=== PATIENT | female | born 1960 | race Caucasian/White ===

== ENCOUNTER 2019-03-05 03:08 | Observation (INO) | payer BC ==
[~2019-03-05] VITALS: Ht 160 cm; Wt 132.9 kg
[2019-03-05 03:42] LABS: BASOPHILS # (AUTO) 0.1 (0.0-0.1); BASOPHILS % 0.6 % (0.0-1.0); EOSINOPHILS # (AUTO) 0.2 (0.0-0.4); EOSINOPHILS % 1.7 % (0.0-6.0); HEMATOCRIT 40.3 % (34.2-44.1); HEMOGLOBIN 12.8 g/dL (12.0-16.0); LYMPHOCYTES # (AUTO) 3.2 (1.0-3.2); LYMPHOCYTES % 24.5 % (18.0-39.1); MEAN CORPUSCULAR HEMOGLOBIN 26.9 pg (28-32); MEAN CORPUSCULAR HGB CONC 31.8 g/dL (31-35); MEAN CORPUSCULAR VOLUME 84.7 fL (81-99); MONOCYTES # (AUTO) 0.9 (0.2-0.8); MONOCYTES % 7.2 % (4.4-11.3); NEUTROPHILS # (AUTO) 8.4 (2.1-6.9); NEUTROPHILS % 65.3 % (38.7-80.0); PLATELET COUNT 249 x10e3/uL (140-360); RED BLOOD COUNT 4.76 x10e6/uL (3.6-5.1); RED CELL DISTRIBUTION WIDTH 13.3 % (11.7-14.4)
--- NOTE | 2019-03-05 03:58 | Diagnostic Imaging Report ---
EXAMINATION: CHEST SINGLE (PORTABLE) COMPARISON: None INDICATION: Hypertension, chest pain ^CHEST PAIN ^[id number] ^0335 ^Y DISCUSSION: Frontal view of the chest obtained at 0337 hours. HEART AND MEDIASTINUM: The heart is enlarged. Pulmonary veins are mildly prominent. LINES: None. LUNGS: The lungs are well inflated and clear. No pneumonia or pulmonary edema. PLEURA: No pleural effusion or pneumothorax. BONES AND SOFT TISSUES: No focal osseous lesion. The soft tissues are normal. IMPRESSION: Cardiomegaly without vascular congestion. No acute pulmonary process. Signed by: Dr. Denis Pepper MD on 03/05/2019 3:55 AM
[2019-03-05 04:10] LABS: ALBUMIN 3.6 g/dL (3.5-5.0); ALBUMIN/GLOBULIN RATIO 1.3 (0.8-2.0); CALCIUM 9.8 mg/dL (8.4-10.2); CREATININE, SERUM 1.35 mg/dL (0.57-1.11)
[2019-03-05 04:19] LABS: CREATINE KINASE MB 0.7 ng/mL (0-5.0)
[2019-03-05] MEDS ORDERED: DEXTROSE 50% SYRINGE 50 ML IV PRN (04:30)
[2019-03-05] MEDS ORDERED: FAMOTIDINE 20 MG TAB PO SCH (04:30)
[2019-03-05] MEDS ORDERED: NITROGLYCERIN 0.4 MG SUBL SL PRN (04:30)
[2019-03-05] MEDS ORDERED: SODIUM CHLORIDE FLUSH 10 ML SYR INJ PRN (04:30)
[2019-03-05] MEDS ORDERED: MORPHINE SULFATE 2 MG/ML SYR 1ML IV PRN (04:30)
[2019-03-05] MEDS ORDERED: ONDANSETRON HCL INJ 2MG/ML 2ML 2 MG/ML VIAL IV PRN (04:30)
--- OUTSIDE RECORDS SUMMARY | 2019-03-05 04:31 | XMS REPORT ---
Author Author [facility] Address Unknown Phone Unavailable Care Team Providers Care Cane Flume Chute Operator Name Role Phone Dain WU Unavailable Unavailable Problems This patient has no known problems. Allergies, Adverse Reactions, Alerts This patient has no known allergies or adverse reactions. Medications This patient has no known medications. Results Test Description Test Time Test Comments Text Results Atomic Results Result Comments CHEST SINGLE (PORTABLE) 2019-03-05 03:54:00 [place] [address] Patient Name: STEFFI BRIGGS MR #: [id number] : 1960 Age/Sex: 58/F Req #: [id number] Adm Physician: Ordered by: DENI WU MD Report #: [id number] Location: ER Room/Bed: Procedure: [id number] DX/CHEST SINGLE (PORTABLE) Exam Date: 03/05/19 Exam Time: 334 REPORT STATUS: Signed EXAMINATION: CHEST SINGLE (PORTABLE) COMPARISON: None INDICATION: Hypertension, chest pain CHEST PAIN [id number] Y DISCUSSION: Frontal view of the chest obtained at 0337 hours. HEART AND MEDIASTINUM: The heart is enlarged. Pulmonary veins are mildly prominent. LINES: None. LUNGS: The lungs are well inflated and clear. No pneumonia or pulmonary edema. PLEURA: No pleural ef fusion or pneumothorax. BONES AND SOFT TISSUES: No focal osseous lesion. The soft tissues are normal. IMPRESSION: Cardiomegaly without vascular congestion. No acute pulmonary process. Signed by: Dr. Pilar Pepper MD on 03/05/2019 3:55 AM Dictated By: PILAR PEPPER MD 4 Transcribed By: GINA on 03/05/19354 COPY TO: DENI WU MD
[2019-03-05] MEDS ORDERED: HUMALOG (06:34)
[2019-03-05] MEDS ORDERED: LISINOPRIL40 MG PO (06:34)
[2019-03-05] MEDS ORDERED: LANTUS 3ML100 UNITS/ (06:34)
[2019-03-05] MEDS ORDERED: ATENOLOL-CHLOR1 EAC1 PO (06:34)
[2019-03-05] MEDS ORDERED: PANTOPRAZOLE 40 MG 10ML VIAL IV ONE (06:45)
[2019-03-05] MEDS ORDERED: OMEPRAZOLE40 MG PO (06:48)
[2019-03-05] MEDS ORDERED: TRULICITY SC (06:48)
[2019-03-05] MEDS: INSULIN REGULAR, HUMAN 100 UNIT/1 ML 3ML VIAL SQ SCH ×4 (07:08→21:06)
[2019-03-05 08:57] LABS: CHOL/HDL RATIO 4.9 (3.0-3.6)
[2019-03-05 09:14] LABS: THYROID STIMULATING HORMONE 3.667 uIU/mL (0.350-4.940)
[2019-03-05] MEDS: ASPIRIN 81 MG ENTERIC COATED PO SCH (09:31)
[2019-03-05] MEDS: FAMOTIDINE 20 MG TAB PO SCH ×2 (09:32→20:52)
[2019-03-05] MEDS: ATENOLOL 50 MG TAB PO SCH (09:32)
[2019-03-05 10:10] LABS: CREATINE KINASE MB 0.6 ng/mL (0-5.0)
[2019-03-05 12:28] VITALS: BP 191/118
[2019-03-05 13:33] VITALS: BP 191/118
[2019-03-05 13:59] VITALS: BP 191/118
[2019-03-05 15:39] VITALS: BP 144/99
--- NOTE | 2019-03-05 15:39 | History and Physical ---
PRIMARY CARE PHYSICIAN: Dr. Lia Couch with [facility]. CHIEF COMPLAINT: Chest pain. ALLERGIES: LEVOFLOXACIN, AMOXICILLIN, AMPICILLIN, AND MORPHINE. HISTORY OF PRESENT ILLNESS: This is a 58-year-old female with past medical history of diabetes type 2, hypertension, high cholesterol, GERD, and sleep apnea, presented with complaints of right-sided chest pain and radiating to the neck and jaw area. She reported right arm heaviness, but no weakness noted. She denies any fever, chills, nausea, vomiting, dysuria, hematuria, diaphoresis, or change in LOC. She reports using CPAP at night and last night she noted that she was having dry mouth and was unable to lay flat on her bed due to the pain. She denies any palpitations or shortness of breath. In the ER, blood pressure was 137/97, respirations 18, pulse 72, temperature 97.7, O2 sats are 100% on room air. She was given Protonix and Pepcid, which seemed to improve her pain. Labs; WBC with 12.84, platelets 249, hemoglobin 12.8, and hematocrit 40.3. Sodium 134. Creatinine 1.35. Estimated GFR 40. Glucose level 333, triglycerides 304, LDL 98, TSH 3.66. First set of troponins 0.062, which is normal. Chest x-ray shows cardiomegaly with vascular congestion. No acute pulmonary process. We will admit the patient under observation to rule out ACS. PAST MEDICAL HISTORY: 1. Diabetes. 2. Hypertension. 3. High cholesterol. 4. GERD. 5. Sleep apnea. 6. Morbid obesity. PAST SURGICAL HISTORY: She has hysterectomy, tonsillectomy, bilateral carpal tunnel. PAST SURGICAL HISTORY: Left knee cartilage cleaning, right foot surgery, and right arm surgery. FAMILY HISTORY: Mother has heart problems and stroke. Does not know about her biological father. SOCIAL HISTORY: She reports smoking 3/4 pack of cigarettes per day. She denies any alcohol use and smokes marijuana occasionally. REVIEW OF SYSTEMS: GENERAL: Lying in bed with no acute distress. HEENT: No head trauma or vision problems. LUNGS: No shortness of breath. CARDIOVASCULAR: Reports right-sided chest pain or palpitations. GI: No nausea, vomiting. NEUROLOGIC: Alert and oriented. MUSCULOSKELETAL: No problems in walking. Mild swelling in the lower extremities. SKIN: Dry and intact. PHYSICAL ASSESSMENT: VITAL SIGNS: See above. Pulse 67, blood pressure 142/95, respirations 14, and SpO2 is 100. GENERAL: Resting in bed, in no acute distress. HEENT: Jaw pain, resolved. NECK: Supple. No bruits. Able to move with no pain. LUNGS: Wheezing noted in the lower lobes. CARDIOVASCULAR: Normal heart rate and rhythm. HEENT: Normocephalic. PERRLA. ABDOMEN: Soft, nontender. Active bowel sounds. EXTREMITIES: Bilateral lower extremities noted 1+ edema, which is chronic. NEUROLOGICAL: Alert, awake, and oriented x3. No dizziness. LABORATORY DATA: Please see the HPI. IMAGING: Chest x-ray showed cardiomegaly with no pulmonary process. IMPRESSION: 1. Chest pain, rule out myocardial infarction. 2. Diabetes type 2. 3. Hypertension. 4. High cholesterol. 5. Gastroesophageal reflux disease. 6. Sleep apnea. 7. Chronic kidney disease 3. 8. Morbid obesity. PLAN: Today, cardiac enzymes x2 have been negative, pending one more set, we will also obtain echocardiogram to rule out congestive heart failure as she has been complaining of pain with lying flat. We will resume all her home medications. We will monitor her on cardiac telemetry to observe for any arrhythmias. If all workup is negative, we will plan on discharge in 24 to 48 hours. Dictated by TONJA Mark Pamela Castellanos MD MY/MODL /[id number]
[2019-03-05 20:15] LABS: CREATINE KINASE MB 0.6 ng/mL (0-5.0)
[2019-03-05 20:50] VITALS: BP 152/98
[2019-03-05 21:00] VITALS: BP 152/98
[2019-03-05] MEDS ORDERED: INSULIN GLARGINE 100 UNITS/ML VIAL SQ SCH ×2 (21:00)
[2019-03-06 00:29] VITALS: BP 129/78
[2019-03-06 05:16] LABS: BASOPHILS # (AUTO) 0.1 (0.0-0.1); BASOPHILS % 0.5 % (0.0-1.0); EOSINOPHILS # (AUTO) 0.3 (0.0-0.4); EOSINOPHILS % 2.5 % (0.0-6.0); HEMATOCRIT 39.1 % (34.2-44.1); HEMOGLOBIN 12.5 g/dL (12.0-16.0); LYMPHOCYTES # (AUTO) 3.2 (1.0-3.2); MEAN CORPUSCULAR HEMOGLOBIN 26.8 pg (28-32); MEAN CORPUSCULAR VOLUME 83.9 fL (81-99); MONOCYTES # (AUTO) 0.8 (0.2-0.8); MONOCYTES % 7.1 % (4.4-11.3); NEUTROPHILS # (AUTO) 6.6 (2.1-6.9); NEUTROPHILS % 60.3 % (38.7-80.0); PLATELET COUNT 246 x10e3/uL (140-360); RED BLOOD COUNT 4.66 x10e6/uL (3.6-5.1); RED CELL DISTRIBUTION WIDTH 13.7 % (11.7-14.4)
[2019-03-06 05:24] VITALS: BP 142/90
[2019-03-06 05:39] LABS: ALBUMIN 3.2 g/dL (3.5-5.0); ALBUMIN/GLOBULIN RATIO 1.2 (0.8-2.0); ANION GAP 12.5 mmol/L (8-16); CALCIUM 9.4 mg/dL (8.4-10.2); CHOL/HDL RATIO 5.4 (3.0-3.6); CREATININE, SERUM 1.09 mg/dL (0.57-1.11); POTASSIUM 3.5 mmol/L (3.5-5.1)
[2019-03-06 07:55] VITALS: BP 150/82
[2019-03-06 08:24] VITALS: BP 150/82
[2019-03-06] MEDS: ASPIRIN 81 MG ENTERIC COATED PO SCH (09:42)
[2019-03-06] MEDS: INSULIN REGULAR, HUMAN 100 UNIT/1 ML 3ML VIAL SQ SCH ×3 (09:44→16:30)
[2019-03-06] MEDS: ATENOLOL 50 MG TAB PO SCH (09:45)
[2019-03-06] MEDS: FAMOTIDINE 20 MG TAB PO SCH (09:45)
[2019-03-06] MEDS ORDERED: INSULIN GLARGINE 100 UNITS/ML VIAL SQ SCH (10:00)
[2019-03-06 11:36] VITALS: BP 163/87
[2019-03-06 16:07] VITALS: BP 154/92
--- NOTE | 2019-03-07 05:56 | Discharge Summary ---
PRIMARY CARE DOCTOR: Dr. Lia Couch with [facility]. CONSULTANTS: None. FINAL DIAGNOSES: 1. Chest pain, ruled out myocardial infarction. 2. Diabetes type 2. 3. Hypertension. 4. High cholesterol. 5. Gastroesophageal reflux disease. 6. Sleep apnea. 7. Morbid obesity. 8. Chronic kidney disease. PROCEDURES: Echocardiogram with preliminary report of 45% to 50% with trace MR. HISTORY: Per HPI. HOSPITAL COURSE: This is a 58-year-old female, who came in with chest pain and jaw pain radiating to her neck and heaviness to the right arm. Chest x-ray showed cardiomegaly without vascular congestion, with no acute pulmonary process. Cardiac enzymes were negative x3. Vital signs were stable. She was given Pepcid and Protonix in the ER, which resolved her symptoms. Chest pain may be related to GI problems. She has history of GERD. She was monitored overnight on telemetry with no rhythm changes or ST changes. Chest x-ray was unremarkable. She is now chest-pain free and has been chest-pain free since getting the PPI. Vital signs stable and afebrile. We will discharge home to follow up with her PCP and her professor of musicology in 1 to 2 weeks. PHYSICAL EXAMINATION: VITAL SIGNS: Temperature 97.0, pulse is 61, blood pressure 163/87, respirations 17, SpO2 is 97. GENERAL: No acute distress, sitting up in a chair. NECK: Supple. LUNGS: Clear to auscultation. CARDIOVASCULAR: S1 and S2. No murmurs. HEENT: Normocephalic and atraumatic. PERRLA. ABDOMEN: Soft, nontender, obese. EXTREMITIES: +1 edema noted in the lower extremities. No pain with range of motion. NEUROLOGIC: Alert, awake, and oriented x3. SKIN: Intact with no gross abnormalities. MEDICATIONS: See medication list. CONDITION AT DISCHARGE: Improved and stable. FOLLOWUP: Follow up with her primary care doctor and professor of musicology in 1 to 2 weeks. Total discharge time is 32 minutes. Dictated by TONJA Mark Hermelindaching Loyd Castellanos MD MY/MODL /[id number] cc: MD [facility]
== END 2019-03-06 18:23 | disposition home or self-care (01) ==
LOC: ER 03:08 → ERHOLD 04:26 → MED/SURG2 12:22
PROVIDERS: ADMIT Internal Medicine; ATTEND Internal Medicine
DX: R07.9 Chest pain, unspecified (principal); E11.9 Type 2 diabetes mellitus without complications; I10 Essential (primary) hypertension; E78.00 Pure hypercholesterolemia, unspecified; K21.9 Gastro-esophageal reflux disease without esophagitis; R06.81 Apnea, not elsewhere classified; E66.01 Morbid (severe) obesity due to excess calories; Z68.43 Body mass index [BMI] 50.0-59.9, adult; G47.30 Sleep apnea, unspecified; E11.22 Type 2 diabetes mellitus with diabetic chronic kidney disease; I12.9 Hypertensive chronic kidney disease with stage 1 through stage 4 chronic kidney disease, or unspecified chronic kidney disease; N18.9 Chronic kidney disease, unspecified
CPT/HCPCS: 36415 ×2; 71045; 80053 ×2; 80061 ×2; 82550; 82553; 82948 ×2; 84443; 84484; 85025 ×2; 93005; 93306; 99284; C9113; G0378 ×2; J1815; J1817

== ENCOUNTER 2019-03-07 15:45 | Observation (INO) | payer BC ==
[~2019-03-07] VITALS: Ht 160 cm; Wt 137.4 kg
[~2019-03-07 15:45] MED LIST: ATENOLOL-CHLOR1 EAC1 PO; HUMALOG; LANTUS 3ML100 UNITS/; LISINOPRIL40 MG PO; OMEPRAZOLE40 MG PO; TRULICITY SC
[2019-03-07 16:25] LABS: BASOPHILS # (AUTO) 0.1 (0.0-0.1); BASOPHILS % 0.4 % (0.0-1.0); EOSINOPHILS # (AUTO) 0.3 (0.0-0.4); EOSINOPHILS % 1.8 % (0.0-6.0); HEMATOCRIT 41.9 % (34.2-44.1); HEMOGLOBIN 13.9 g/dL (12.0-16.0); LYMPHOCYTES # (AUTO) 2.5 (1.0-3.2); LYMPHOCYTES % 17.6 % (18.0-39.1); MEAN CORPUSCULAR HEMOGLOBIN 27.1 pg (28-32); MEAN CORPUSCULAR HGB CONC 33.2 g/dL (31-35); MEAN CORPUSCULAR VOLUME 81.7 fL (81-99); MONOCYTES # (AUTO) 0.9 (0.2-0.8); MONOCYTES % 6.5 % (4.4-11.3); NEUTROPHILS # (AUTO) 10.1 (2.1-6.9); PLATELET COUNT 297 x10e3/uL (140-360); RED BLOOD COUNT 5.13 x10e6/uL (3.6-5.1); RED CELL DISTRIBUTION WIDTH 13.5 % (11.7-14.4)
[2019-03-07 16:46] LABS: ALBUMIN/GLOBULIN RATIO 1.3 (0.8-2.0); ANION GAP 16.7 mmol/L (8-16); CALCIUM 10.4 mg/dL (8.4-10.2); CREATININE, SERUM 1.26 mg/dL (0.57-1.11); POTASSIUM 3.7 mmol/L (3.5-5.1)
[2019-03-07 16:53] LABS: CREATINE KINASE MB 0.7 ng/mL (0-5.0)
--- NOTE | 2019-03-07 17:00 | Diagnostic Imaging Report ---
EXAMINATION: PA and lateral views of the chest. COMPARISON: None CLINICAL HISTORY: Shortness of breath, chest pain DISCUSSION: Lines/tubes: None. Lungs: The lungs are well inflated and clear. No pneumonia or pulmonary edema. Pleura: No pleural effusion or pneumothorax. Heart and mediastinum: The cardiomediastinal silhouette is normal. Bones and soft tissues: No acute bony abnormalities. IMPRESSION: No acute cardiopulmonary abnormalities. Signed by: Dr. Loyd De Anda M.D. on 03/07/2019 4:56 PM
[2019-03-07] MEDS ORDERED: HYDRALAZINE HCL 20 MG/ML VIAL IV ONE (17:30)
[2019-03-07] MEDS ORDERED: HYDRALAZINE HCL 20 MG/ML VIAL IV PRN (17:30)
[2019-03-07] MEDS ORDERED: ASPIRIN 325 MG TAB PO ONE (17:30)
[2019-03-07] MEDS ORDERED: MORPHINE SULFATE 2 MG/ML SYR 1ML IV PRN (17:30)
[2019-03-07] MEDS ORDERED: ONDANSETRON HCL INJ 2MG/ML 2ML 2 MG/ML VIAL IV PRN (17:30)
[2019-03-07] MEDS ORDERED: MORPHINE SULFATE INJ 4 MG/ML INJ 1ML IV PRN (17:45)
[2019-03-07] MEDS ORDERED: ACETAMINOPHEN 325 MG TAB PO PRN (18:15)
[2019-03-07] MEDS ORDERED: DEXTROSE 50% SYRINGE 50 ML IV PRN (18:15)
[2019-03-07 21:34] VITALS: BP 141/74
[2019-03-07] MEDS: INSULIN LISPRO 100 UNIT/1 ML 3ML VIAL SQ SCH (22:00)
[2019-03-07] MEDS: INSULIN GLARGINE 100 UNITS/ML VIAL SQ SCH (22:00)
--- NOTE | 2019-03-07 22:30 | NUR ---
RECEIVED PATIENT FROM ER AOX4, NO SIGNS OF RESPIRATORY DISTRESS NOTED. PATIENT VOICED DULL PAIN IN CHEST AT A LEVEL OF 1 AND ALSO COMPLAINED OF TIGHTNESS IN JAWS AND SORENESS IN RIGHT ARM. BED IS LOCKED IN LOWEST POSITION, BOTH SIDE RAILS ARE UP, CALL LIGHT WITHIN REACH, WILL CONTINUE TO MONITOR.
[2019-03-07 22:57] VITALS: BP 141/74
[2019-03-08] VITALS (8 sets, daily range): BP systolic 112–142; BP diastolic 72–97
--- NOTE | 2019-03-08 01:30 | NUR ---
PATIENT COMPLAINED OF FRUSTRATION DUE TO AIR CONDITIONING NOT WORKING IN ROOM. PATIENT CALLED FAMILY MEMBER FOR FAN TO PUT IN ROOM. WILL CONTINUE TO MONITOR SITUATION.
[2019-03-08 02:13] LABS: CREATINE KINASE MB 1.2 ng/mL (0-5.0)
--- NOTE | 2019-03-08 07:10 | NUR ---
PATIENT IN STABLE CONDITION WITH NO S/S OF RESPIRATORY DISTRESS. NO PAIN VOICED. DENIES CHEST PAIN AT THIS TIME. TELEMETRY APPLIED. CALL LIGHT IS WITHIN REACH, PATIENT INSTRUCTED TO CALL FOR ASSISTANCE INSTRUCTED.
[2019-03-08] MEDS: INSULIN LISPRO 100 UNIT/1 ML 3ML VIAL SQ SCH ×4 (07:30→20:30)
[2019-03-08] MEDS: ATENOLOL 50 MG TAB PO SCH (08:47)
[2019-03-08] MEDS: PANTOPRAZOLE SOD 40 MG TABEC PO SCH (08:47)
[2019-03-08] MEDS: INSULIN GLARGINE 100 UNITS/ML VIAL SQ SCH ×2 (08:50→20:30)
[2019-03-08 09:45] LABS: CREATINE KINASE MB 1.5 ng/mL (0-5.0)
[2019-03-08] MEDS ORDERED: CLOPIDOGREL BISULFATE 75 MG TAB PO ONE (10:15)
--- NOTE | 2019-03-08 12:44 | NUR ---
CALL AND SPOKE TO DR. CASH'S N.P. PAULO CHINCHILLA, REGARDING PATIENT'S FIVE EPISODES OF RIGHT SIDED CHEST PAIN AND JAW TIGHTENING. PATIENT STATED EPISODES "COULD BE ANXIETY OR NEURO RELATED". ORDER FOR ATIVAN 1MG Q6H PRN. INFORMED N.P. PATIENT IS ALLERGIC TO MORPHINE- ORDER TO DC MORPHINE.
--- NOTE | 2019-03-08 12:52 | Consultation ---
DATE OF CONSULTATION: Cardiac Consultation HISTORY OF PRESENT ILLNESS: A 58-year-old lady, who is diabetic, hypertensive, hypercholesterolemic, sleep apnea, and smoker. The patient was in this institution on 03/05 and she was dismissed on March 06, 2019. She went home to come back yesterday complaining of right arm pain with right arm heaviness and pain in her neck and jaw area. This happened when she go to sleep and she sleep flat. If she is sitting, she is fine. If she walks, she notice her usual shortness of breath and feeling air hunger. Furthermore, the patient's sleep on CPAP. The patient ruled out for myocardial infarction last visit and again this visit. Her chest x-ray showed some cardiomegaly with vascular congestion, but she is very vague and it was portable technique. Regardless, the patient is feeling well now and again, she is ruled out for myocardial infarction. Her cardiac symptoms are easy fatigability, shortness of breath on exertion. No pleuritic nor pericarditic component of chest pain. No recent travel. No hormone use. Of note, the patient had cardiac evaluation with Lexiscan nuclear stress test at [facility] and had been told she is perfectly normal just few months back. PAST MEDICAL HISTORY: 1. Morbid obesity. 2. Diabetes mellitus. 3. Hypertension. 4. Hypercholesterolemia. 5. Smoker. 6. Sleep apnea. 7. GERD. 8. Cervical and lumbar spine disease. 9. Hysterectomy. 10. Tonsillectomy. 11. Bilateral carpal tunnel surgery. 12. Laparoscopic left knee surgery. 13. Right foot surgery. 14. Right arm surgery. FAMILY HISTORY: Strongly positive on her mother side with her mother, her uncles. SOCIAL HISTORY: She is divorcee. She smokes three-quarter pack a day. She does not drink alcohol. Her son lives with her in her home. REVIEW OF SYSTEMS: GENERAL: No fever. No chills. HEENT: No vision problem. No hearing problem. PULMONARY: As per above. CARDIAC: As per above. GI: No hematemesis. No melena. No nausea. No vomiting. : No hematuria, increased frequency of urination. Urinary tract infection at time. MUSCULOSKELETAL: Back pain, cervical spine pain. SKIN: No rashes. No new skin lesion. ENDOCRINE: She is diabetic for 5 years on treatment, currently on insulin. She had problem with metformin in the past. HEMATOLOGY: No easy bruising or bleeding. HOME MEDICATIONS: Include: 1. Atenolol/hydrochlorothiazide. 2. Lisinopril 40 mg a day. 3. Lantus insulin. 4. Humalog insulin. 5. Trulicity. ALLERGIES: LEVAQUIN, AMOXICILLIN, AMPICILLIN, AND MORPHINE. PHYSICAL EXAMINATION: GENERAL: Morbidly obese lady, in no acute distress. VITAL SIGNS: Height of 5 feet 3 inches, weight of 303 pounds, blood pressure 110/70, heart rate of 50, and respiratory rate of 18. HEENT: Pupils are equal and reactive. NECK: No elevation of jugular venous pulsation. No bruit. CHEST: Clear to auscultation and percussion. HEART: Distant heart sound. Unable to palpate the apex. Normal first and second heart sounds. ABDOMEN: Very obese. I cannot appreciate any organomegaly or abdominal bruits. EXTREMITIES: No signs of clubbing. No edema. No signs of deep venous thrombosis. NEUROLOGIC: Awake, alert, and oriented. Able to move her extremities. LABORATORY DATA: Sodium of 134, potassium 3.7, BUN of 21, and creatinine of 1.26. White blood cell count of 13.9, hemoglobin 13.9, hematocrit 42%, and platelet count of 297,000. Cardiac enzymes are normal. Lipid profile last visit showed triglycerides of 257, total cholesterol of 189, HDL of 35, LDL of 103, and TSH of 3.67. IMPRESSION AND PLAN: 1. Diabetic with peripheral neuropathy. 2. Hypertension. 3. Hypercholesterolemia. 4. Sleep apnea. 5. Gastroesophageal reflux disease. 6. Chronic kidney disease. 7. Morbid obesity. 8. Repeated chest pain. Cardiac enzymes negative, but the patient already had noninvasive workup and she keeps coming for chest pain, now she came twice. In view of that, probably now within next available approach to rule out coronary artery disease is a cardiac catheterization. This was explained, risks, benefits, alternatives. Of note, the patient does have variation of decreased pulse in her right wrist, right radial. If it is will be femoral. We explained the cardiac catheterization. We explained the other approach of medical therapy, then we will need to add Plavix for the time being and statin small dose. The patient of course advised all the cardiac risk modification. The patient for the time being, she will take her Plavix, her statin because she needed to go home and she promises to follow on that with her linotype worker and her automotive brake specialist. MD GUY Lyles/BISHNU /[id number]
[2019-03-08] MEDS ORDERED: LORAZEPAM INJ 2 MG/ML VIAL IV PRN (13:00)
[2019-03-08] MEDS ORDERED: CYCLOBENZAPRINE HCL 10 MG TAB PO PRN (14:15)
[2019-03-08] MEDS ORDERED: SODIUM CHLORIDE 0.9% 1000ML 2,000 ML IV SCH (14:30)
--- NOTE | 2019-03-08 17:23 | History and Physical ---
PRIMARY CARE PHYSICIAN: Dr. Couch with [facility]. CHIEF COMPLAINT: Recurrent chest pain with right upper arm heaviness. HISTORY OF PRESENT ILLNESS: This is a 58-year-old female with past medical history of hypertension, high cholesterol, diabetes type 2, sleep apnea, morbid obesity, and GERD, presented with right-sided chest pain, right upper arm that started 4 days ago. She was admitted on 03/05/2019, and discharged on 03/06/2019, after a negative cardiac workup. At this time, she reports having similar pain with more right arm heaviness. She is able to move her arms. She denies any fever, chills, cough, diaphoresis, shortness of breath, change in LOC, or change in her bowel habits. She reports that she went to work yesterday and felt the chest pain, so had to go back to the house and called her PCP, who informed her that she had a cardiac workup at [facility] in recent months, which was negative and to follow up with Cardiology. She also told her to take Maalox and Pepto-Bismol, which she did, and did not relieve her pain, so she came to the ER. In the ER, chest x-ray was negative for acute process. She is admitted under observation for further evaluation. PAST MEDICAL HISTORY: 1. Hypertension. 2. High cholesterol. 3. Diabetes. 4. GERD. 5. Sleep apnea. 6. Morbid obesity. PAST SURGICAL HISTORY: 1. Tonsillectomy. 2. Bilateral tubal ligation. 3. Bilateral carpal tunnel surgeries. 4. Left knee surgery. 5. Right foot and right arm surgery. 6. Hysterectomy. FAMILY MEDICAL HISTORY: Reports mother had heart disease. SOCIAL HISTORY: She smokes 3/4 pack of cigarettes per day, she denies any alcohol use and reports using marijuana occasionally to help her sleep. She lives with her son and is a divorcee. REVIEW OF SYSTEMS: GENERAL: No fever or chills. HEENT: No head trauma or mouth sores. LUNGS: No shortness of breath or cough. CARDIOVASCULAR: Mild chest pain. Denies palpitations. GI: No nausea or vomiting. NEUROLOGIC: Alert and awake. MUSCULOSKELETAL: No swelling. No pain with ambulation. SKIN: No rash or itching. PHYSICAL ASSESSMENT: VITAL SIGNS: Temperature is 96.2, pulse is 65, blood pressure is 142/97, respirations 20, and SpO2 is 98%. GENERAL: Appears to be in no acute distress. HEENT: Normocephalic, atraumatic. LUNGS: Clear to auscultation. Bilateral lower lobes with decreased breath sounds. CARDIOVASCULAR: S1 and S2. No murmur. GI: Abdomen is soft and nontender. Obese. NEURO: Alert, awake, and oriented x3. MUSCULOSKELETAL: Complains of right arm heaviness and pain, and lower extremities with trace edema. SKIN: Intact and dry with no gross abnormalities. LABORATORY DATA: Sodium 134, potassium 3.7, creatinine 1.26, BUN is 21. WBCs 13.9, hemoglobin is 13.9, hematocrit 41.9, and platelets are 297. Cardiac enzymes x3 were negative. Chest x-ray shows cardiomegaly, but no acute process. IMPRESSION: 1. Chest pain, rule out acute coronary syndrome. 2. Hypertension. 3. Diabetes type 2. 4. High cholesterol. 5. Gastroesophageal reflux disease. 6. Sleep apnea and morbid obesity. 7. Smoker. PLAN: Chest pain is still present, Cardiology has been consulted, has discussed with her regarding left heart catheterization, but patient did not want to proceed with heart catheterization at this time. She was started on Plavix, we will give her Ativan for increased chest pain and anxiety. We will check a CTA of the chest to rule out PE. We will continue to monitor her on telemetry to see any arrhythmia. Advice on lifestyle modifications and cessation of smoking. Further recommendations to follow. Dictated by TONJA Mark Pamela Castellanos MD MY/MODL /[id number]
[2019-03-08 17:27] LABS: ANION GAP 15.8 mmol/L (8-16); CALCIUM 10.3 mg/dL (8.4-10.2); CREATININE, SERUM 1.16 mg/dL (0.57-1.11); POTASSIUM 3.8 mmol/L (3.5-5.1)
--- NOTE | 2019-03-08 18:06 | NUR ---
PATIENT OFF THE UNIT PER WHEELCHAIR TO RADIOLOGY- PATIENT IN STABLE CONDITION WITH NO S/S OF RESPIRATORY DISTRESS.
[2019-03-08] MEDS ORDERED: SODIUM CHLORIDE 0.9% 50ML 50 ML ONE (18:11)
[2019-03-08] MEDS ORDERED: IOPAMIDOL 370 MG/ML 200 ML INFUS..BTL INJ ONE (18:12)
--- NOTE | 2019-03-08 19:09 | NUR ---
PATIENT IS IN STABLE CONDITION WITH NO S/S OF RESPIRATORY DISTRESS. NO PAIN VOICED. TELEMETRY APPLIED. IV FLUIDS INFUSING. CALL LIGHT IS WITHIN REACH, PATIENT INSTRUCTED TO CALL FOR ASSISTANCE INSTRUCTED. REPORT GIVEN TO ONCOMING NURSE.
--- NOTE | 2019-03-08 20:30 | NUR ---
PATIENT IS AOX4, NO SIGNS OF DISTRESS NOTED. PATIENT VOICED THAT SHE HAS NOT FELT CHEST PAINS SINCE TAKING ATIVAN EARLIER. BED IN LOWEST POSITION AND LOCKED, CALL LIGHT WITHIN EASY REACH, WILL CONTINUE TO MONITOR.
--- NOTE | 2019-03-08 20:35 | Diagnostic Imaging Report ---
CT chest pulmonary embolism protocol CPT code: 48755 INDICATION: Chest pain radiates to jaw ^r/o PE ^[id number] ^1825 TECHNIQUE: Thin collimation axial images obtained through the level of the pulmonary arteries with additional imaging through the chest following the uneventful administration of 100 cc of low osmolar, nonionic intravenous contrast. Images reconstructed into coronal and sagittal MIPs for complete evaluation of the tortuous and overlapping pulmonary vascular structures and to reduce patient radiation dose. RADIATION DOSE: Total DLP: 100 mGy*cm Estimated effective dose: (DLP x 0.015 x size factor) mSv CTDIvol has been reviewed. It is below the limits set by the Radiation Protocol Committee (RPC). Dose reduction techniques used: Automated exposure control, adjustment of the mAs and/or kVp according to patient size, standardized low-dose protocol, and/or iterative reconstruction technique. COMPARISON: Chest x-ray 03/07/2019. FINDINGS: Pulmonary artery: No filling defects are appreciated within the main, left, right, lobar or visualized segmental pulmonary arteries to suggest embolism. The main pulmonary artery measures 3.3 cm in diameter. Aorta: The ascending aorta measures 3.7 cm in diameter. Lymph nodes: No enlarged axillary or supraclavicular lymph nodes. No enlarged mediastinal or hilar lymph nodes. Thyroid: Normal in size without mass in the visualized parenchyma.. Mediastinum: The heart is mildly enlarged. Pericardial effusion measures 8 mm. The esophagus is collapsed. Lungs: Right Lun noncalcified nodules in the right middle lobe, the larger measuring 4 mm (image 68). No infiltrates. Left Lung: Chronic atelectasis/scarring in the lingula. No infiltrates. Pleura: No pleural effusion or pleural based mass. Abdomen: No mass or lymphadenopathy in the visualized portions of the upper abdomen. Bones: Mild degenerative changes of the spine. No compression deformities or focal osseous lesions. IMPRESSION: 1. No evidence of pulmonary embolus. Top normal-size of the main pulmonary artery 2. Cardiomegaly and small pericardial effusion. 3. Subcentimeter nodules in the right middle lobe, statistically benign. Signed by: Dr. Denis Pepper MD on 03/08/2019 8:32 PM
[2019-03-08] MEDS ORDERED: ATORVASTATIN 10 MG TAB PO SCH (21:00)
[2019-03-09 00:14] VITALS: BP 139/89
[2019-03-09 05:30] VITALS: BP 120/86
[2019-03-09 06:38] LABS: ANION GAP 14.4 mmol/L (8-16); CALCIUM 9.3 mg/dL (8.4-10.2); CREATININE, SERUM 1.14 mg/dL (0.57-1.11); POTASSIUM 3.4 mmol/L (3.5-5.1)
--- NOTE | 2019-03-09 07:10 | NUR ---
PATIENT IS IN STABLE CONDITION WITH NO S/S OF RESPIRATORY DISTRESS. NO PAIN VOICED. IV FLUIDS INFUSING. CPAP APPLIED. CALL LIGHT IS WITHIN REACH, PATIENT INSTRUCTED TO CALL FOR ASSISTANCE INSTRUCTED.
[2019-03-09 07:54] VITALS: BP 108/73
[2019-03-09] MEDS: PANTOPRAZOLE SOD 40 MG TABEC PO SCH (08:40)
[2019-03-09] MEDS: ATENOLOL 50 MG TAB PO SCH (08:40)
[2019-03-09] MEDS: INSULIN LISPRO 100 UNIT/1 ML 3ML VIAL SQ SCH ×3 (08:40→16:30)
[2019-03-09] MEDS: INSULIN GLARGINE 100 UNITS/ML VIAL SQ SCH (08:48)
[2019-03-09 08:57] VITALS: BP 108/73
[2019-03-09] MEDS ORDERED: CLOPIDOGREL BISULFATE 75 MG TAB PO SCH (09:00)
[2019-03-09] MEDS ORDERED: LISINOPRIL 20 MG TAB PO SCH (09:00)
[2019-03-09] MEDS ORDERED: ASPIRIN 81 MG CHEW TAB PO SCH (09:00)
[2019-03-09 11:17] VITALS: BP 125/66
[2019-03-09 15:18] VITALS: BP 142/77
--- NOTE | 2019-03-09 18:52 | NUR ---
PATIENT DISCHARGE HOME- PATIENT OFF THE UNIT AT 1844 ACCOMPANIED BY STAFF MEMBER AND HER SON. PATIENT IN STABLE CONDITION WITH NO S/S OF RESPIRATORY DISTRESS. NO PAIN VOICED. IV REMOVED WITH TIP INTACT. DISCHARGE TEACHING, INSTRUCTIONS, AND MEDICATIONS GIVEN TO THE PATIENT. ALL PERSONAL ITEMS TAKEN WITH THE PATIENT.
--- NOTE | 2019-03-10 14:53 | Discharge Summary ---
CONSULTANTS: Santosh Moore M.D. with Cardiology. PCP: Dr. Couch with [facility]. FINAL DIAGNOSES: 1. Chest pain, ruled out acute coronary syndrome. 2. Hypertension. 3. High cholesterol. 4. Diabetes type 2. 5. Gastroesophageal reflux disease. 6. Sleep apnea. 7. Morbid obesity. PROCEDURES: None. HISTORY: Per HPI. HOSPITAL COURSE: This is a 58-year-old female with a history of hypertension, high cholesterol, diabetes, sleep apnea, morbid obesity, and GERD, presented with recurrent chest pain. She had a cardiac workup, which was unremarkable, cardiac enzymes x3 were negative. Chest x-ray is unremarkable. No EKG changes. She was admitted on 03/05/2019 and discharged on 03/06/2019 after workup was completed, but returned on 03/07/2019 with similar symptoms. Cardiology was consulted this time around. Cardiac enzymes were negative again. Cardiology recommended a left heart catheterization, but the patient has refused at this time to undergo catheterization for further workup. She was started on Plavix 1 loading dose given and started on 75 mg p.o. daily. CTA of chest was performed to rule out PE, which was negative for PE. We will discharge the patient on aspirin, Plavix, and her current medications and to follow up with her PCP and her poker machine attendant at [facility] as she prefers to follow up with them for further workup. PHYSICAL EXAMINATION: GENERAL: Alert with no acute distress. NECK: Supple. LUNGS: With mild decreased breath sounds. CARDIOVASCULAR: Normal rate and rhythm. ABDOMEN: Soft and nontender. EXTREMITIES: No swelling. NEUROLOGIC: Alert, awake, oriented x3. CONDITION AT DISCHARGE: Improved and stable. DISCHARGE MEDICATIONS: Please see medication reconciliation list. FOLLOWUP: Follow up with her PCP, Dr. Couch and her poker machine attendant at [facility]. Total time for discharge was 32 minutes. Dictated by TONJA Mark Pamela Castellanos MD MY/MODL /[id number] cc: Dr. Couch
== END 2019-03-09 18:50 | disposition home or self-care (01) ==
LOC: ER 15:45 → ERHOLD 17:24 → MED/SURG3 21:15
PROVIDERS: ADMIT Internal Medicine; ATTEND Internal Medicine
DX: R07.89 Other chest pain (principal); E78.00 Pure hypercholesterolemia, unspecified; G47.30 Sleep apnea, unspecified; E66.01 Morbid (severe) obesity due to excess calories; K21.9 Gastro-esophageal reflux disease without esophagitis; M79.621 Pain in right upper arm; Z82.49 Family history of ischemic heart disease and other diseases of the circulatory system; F17.210 Nicotine dependence, cigarettes, uncomplicated; E11.42 Type 2 diabetes mellitus with diabetic polyneuropathy; E11.22 Type 2 diabetes mellitus with diabetic chronic kidney disease; I12.9 Hypertensive chronic kidney disease with stage 1 through stage 4 chronic kidney disease, or unspecified chronic kidney disease; N18.9 Chronic kidney disease, unspecified; Z79.4 Long term (current) use of insulin; Z88.1 Allergy status to other antibiotic agents; Z88.5 Allergy status to narcotic agent; Z68.43 Body mass index [BMI] 50.0-59.9, adult
CPT/HCPCS: 36415 ×3; 71046; 71260; 80048 ×2; 80053; 82550 ×2; 82553 ×2; 82948 ×3; 83880; 84484 ×2; 85025; 93005; 99284; G0378 ×3; J1815; J2060; J7030; Q9967; S0164 ×2

== ENCOUNTER 2019-10-01 17:57 | Emergency (ER) | payer BC ==
[~2019-10-01] VITALS: Ht 160 cm; Wt 137.4 kg
== END 2019-10-01 18:57 | disposition home or self-care (01) ==
LOC: ER 17:57
DX: R10.33 Periumbilical pain (principal); K42.9 Umbilical hernia without obstruction or gangrene; I10 Essential (primary) hypertension; E11.9 Type 2 diabetes mellitus without complications; E78.5 Hyperlipidemia, unspecified; K21.9 Gastro-esophageal reflux disease without esophagitis
CPT/HCPCS: 99283

== ENCOUNTER 2021-01-11 10:58 | Inpatient (IN) | payer BC ==
[~2021-01-11] VITALS: Ht 160 cm; Wt 105.2 kg
[2021-01-11] MEDS ORDERED: SODIUM CHLORIDE 0.9% 1000ML 1,000 ML IV STA ×2 (11:44→12:45)
[2021-01-11 12:03] LABS: BASOPHILS # (AUTO) 0.1 (0.0-0.1); BASOPHILS % 0.8 % (0.0-1.0); EOSINOPHILS # (AUTO) 0.1 (0.0-0.4); EOSINOPHILS % 0.5 % (0.0-6.0); HEMATOCRIT 41.3 % (34.2-44.1); HEMOGLOBIN 13.4 g/dL (12.0-16.0); LYMPHOCYTES # (AUTO) 1.9 (1.0-3.2); LYMPHOCYTES % 12.3 % (18.0-39.1); MEAN CORPUSCULAR HEMOGLOBIN 26.5 pg (28-32); MEAN CORPUSCULAR HGB CONC 32.4 g/dL (31-35); MEAN CORPUSCULAR VOLUME 81.6 fL (81-99); MONOCYTES # (AUTO) 1.4 (0.2-0.8); MONOCYTES % 9.2 % (4.4-11.3); NEUTROPHILS # (AUTO) 11.4 (2.1-6.9); NEUTROPHILS % 73.3 % (38.7-80.0); PLATELET COUNT 377 x10e3/uL (140-360); RED BLOOD COUNT 5.06 x10e6/uL (3.6-5.1); RED CELL DISTRIBUTION WIDTH 13.6 % (11.7-14.4)
[2021-01-11] MEDS ORDERED: DIATRIZOATE MEGL/DIATRIZOA SOD 30 ML BTL PO ONE (12:04)
[2021-01-11 12:21] LABS: INFLUENZAE A&B ANTIGEN (RAPID) NEGATIVE (NEGATIVE); STREPTOCOCCUS GRP A ANTIGEN NEGATIVE (NEGATIVE)
[2021-01-11 12:22] LABS: ALANINE AMINOTRANSFERASE 19 IU/L (0-55); ALBUMIN 2.4 g/dL (3.5-5.0); ALBUMIN/GLOBULIN RATIO 0.5 (0.8-2.0); ALKALINE PHOSPHATASE 160 IU/L (40-150); ANION GAP 23.2 mmol/L (8-16); BLOOD UREA NITROGEN 34 mg/dL (7-26); BUN/CREATININE RATIO 23 (6-25); CALCIUM 10.6 mg/dL (8.4-10.2); CARBON DIOXIDE 17 mmol/L (22-29); CHLORIDE 93 mmol/L (98-107); CREATINE KINASE 10 IU/L (29-168); CREATININE, SERUM 1.45 mg/dL (0.57-1.11); EST GLOMERULAR FILTRATION RATE 37 ML/MIN (60-); POTASSIUM 4.2 mmol/L (3.5-5.1); SODIUM 129 mmol/L (136-145)
[2021-01-11 12:27] LABS: GLUCOSE 541 mg/dL (74-118)
[2021-01-11] MEDS ORDERED: SODIUM CHLORIDE 0.9% 50ML 50 ML ONE (13:05)
[2021-01-11] MEDS ORDERED: IOPAMIDOL 370 MG/ML 200 ML INFUS..BTL INJ ONE (13:05)
[2021-01-11] MEDS ORDERED: MAGNESIUM SULF 1GRAM/DEXTROSE 100 ML IV PRN (14:00)
[2021-01-11] MEDS ORDERED: POTASSIUM CHLORIDE 20MEQ/100ML 200 ML IV PRN (14:00)
[2021-01-11] MEDS: INSULIN REGULAR, HUMAN 3ML VL 100 UNIT in SODIUM CHLORIDE 0.9% 100 ML IV SCH ×2 (14:44)
[2021-01-11] MEDS: SODIUM CHLORIDE 0.9% 1000ML 1,000 ML IV SCH ×2 (15:20→19:25)
[2021-01-11 16:30] LABS: ANION GAP 15.6 mmol/L (8-16); CREATININE, SERUM 1.26 mg/dL (0.57-1.11); MAGNESIUM 1.8 MG/DL (1.3-2.1); POTASSIUM 3.6 mmol/L (3.5-5.1)
[2021-01-11 16:31] LABS: CALCIUM 8.9 mg/dL (8.4-10.2)
[2021-01-11 19:52] LABS: ANION GAP 15.6 mmol/L (8-16); CALCIUM 9.1 mg/dL (8.4-10.2); CREATININE, SERUM 1.05 mg/dL (0.57-1.11); MAGNESIUM 1.8 MG/DL (1.3-2.1); POTASSIUM 3.6 mmol/L (3.5-5.1)
[2021-01-11] MEDS: DEXTROSE 5%/0.45% SOD CHL 1,000 ML IV SCH (20:38)
[2021-01-11] MEDS ORDERED: INSULIN REGULAR IN 0.9 % NACL 100 ML IV ONE (22:46)
[2021-01-12] VITALS (9 sets, daily range): BP systolic 121–161; BP diastolic 79–100
[2021-01-12] MEDS: INSULIN REGULAR, HUMAN 3ML VL 100 UNIT in SODIUM CHLORIDE 0.9% 100 ML IV SCH ×2
[2021-01-12 00:26] LABS: ANION GAP 13.5 mmol/L (8-16); CALCIUM 8.6 mg/dL (8.4-10.2); CREATININE, SERUM 0.86 mg/dL (0.57-1.11); MAGNESIUM 1.7 MG/DL (1.3-2.1); POTASSIUM 3.5 mmol/L (3.5-5.1)
[2021-01-12] MEDS: DEXTROSE 5%/0.45% SOD CHL 1,000 ML IV SCH (03:00)
[2021-01-12 04:56] LABS: BASOPHILS # (AUTO) 0.1 (0.0-0.1); BASOPHILS % 0.4 % (0.0-1.0); EOSINOPHILS # (AUTO) 0.1 (0.0-0.4); EOSINOPHILS % 0.9 % (0.0-6.0); HEMATOCRIT 37.4 % (34.2-44.1); HEMOGLOBIN 11.6 g/dL (12.0-16.0); LYMPHOCYTES # (AUTO) 1.8 (1.0-3.2); LYMPHOCYTES % 15.8 % (18.0-39.1); MEAN CORPUSCULAR HEMOGLOBIN 26.6 pg (28-32); MEAN CORPUSCULAR VOLUME 85.8 fL (81-99); MONOCYTES # (AUTO) 0.8 (0.2-0.8); MONOCYTES % 7.5 % (4.4-11.3); NEUTROPHILS # (AUTO) 7.9 (2.1-6.9); NEUTROPHILS % 70.8 % (38.7-80.0); PLATELET COUNT 256 x10e3/uL (140-360); RED BLOOD COUNT 4.36 x10e6/uL (3.6-5.1); RED CELL DISTRIBUTION WIDTH 13.6 % (11.7-14.4)
[2021-01-12 05:11] LABS: ANION GAP 13.3 mmol/L (8-16); CALCIUM 9.5 mg/dL (8.4-10.2); CREATININE, SERUM 0.85 mg/dL (0.57-1.11); MAGNESIUM 1.8 MG/DL (1.3-2.1); POTASSIUM 3.3 mmol/L (3.5-5.1)
[2021-01-12] MEDS ORDERED: DEXTROSE 50% SYRINGE 50 ML IV PRN (05:30)
[2021-01-12] MEDS ORDERED: POTASSIUM CHLORIDE 20 MEQ TAB CR PO ONE ×2 (06:07→07:00)
[2021-01-12] MEDS: INSULIN REGULAR, HUMAN 100 UNIT/1 ML SQ SCH ×2 (07:30→11:26)
[2021-01-12 10:01] LABS: ANION GAP 15.9 mmol/L (8-16); CALCIUM 8.8 mg/dL (8.4-10.2); CREATININE, SERUM 0.95 mg/dL (0.57-1.11); MAGNESIUM 1.7 MG/DL (1.3-2.1); POTASSIUM 3.9 mmol/L (3.5-5.1)
[2021-01-12] MEDS: MEROPENEM 1 GM in SODIUM CHLORIDE 0.9% 100 ML IV SCH ×2 (11:30→21:59)
[2021-01-12 12:17] LABS: CLARITY,URINE CLEAR (CLEAR); COLOR,URINE YELLOW (YELLOW); LEUKOCYTE ESTERASE ,URINE SMALL (NEGATIVE)
[2021-01-12 12:18] LABS: NITRITE,URINE POSITIVE (NEGATIVE); PROTEIN,URINE DIPSTICK NEGATIVE (NEGATIVE)
[2021-01-12 12:19] LABS: KETONES,URINE 1+ (NEGATIVE); URINE UROBILINOGEN 0.2 mg/dL (0.2 - 1)
[2021-01-12 12:20] LABS: BACTERIA,URINE MANY /HPF; EPITHELIAL CELLS,URINE FEW /LPF; RBC,URINE 0-5 /HPF (0-5); WBC,URINE (MAN) >50 /HPF (0-5)
[2021-01-12 14:26] LABS: FREE T4 (FREE THYROXINE) 0.89 ng/dL (0.8-1.8); THYROID STIMULATING HORMONE 1.548 uIU/mL (0.350-4.940)
[2021-01-12] MEDS: INSULIN LISPRO 100 UNIT/1 ML 3ML VIAL SQ SCH ×3 (16:24→21:15)
[2021-01-12] MEDS ORDERED: INSULIN LISPRO 100 UNIT/1 ML 3ML VIAL SQ SCH (16:30)
[2021-01-12] MEDS ORDERED: INSULIN GLARGINE 100 UNITS/ML VIAL SQ SCH ×2 (17:00→21:00)
[2021-01-12] MEDS: INSULIN GLARGINE 100 UNITS/ML VIAL SQ SCH (21:15)
[2021-01-12] MEDS: ACETAMINOPHEN/CODEINE 300MG - 30MG TAB PO PRN (22:35)
[2021-01-13] VITALS (7 sets, daily range): BP systolic 101–140; BP diastolic 66–85
[2021-01-13] MEDS: INSULIN LISPRO 100 UNIT/1 ML 3ML VIAL SQ SCH ×7 (07:30→21:00)
[2021-01-13] MEDS: INSULIN GLARGINE 100 UNITS/ML VIAL SQ SCH ×2 (08:24→21:00)
[2021-01-13] MEDS: MEROPENEM 1 GM in SODIUM CHLORIDE 0.9% 100 ML IV SCH ×2 (09:00→21:00)
[2021-01-13] MEDS: PANTOPRAZOLE SOD 40 MG TABEC PO SCH (09:00)
[2021-01-13] MEDS: LISINOPRIL 20 MG TAB PO SCH (09:00)
[2021-01-13] MEDS: ATENOLOL 50 MG TAB PO SCH (09:00)
[2021-01-13] MEDS: CHLORTHALIDONE 25 MG TAB PO SCH (09:00)
[2021-01-13] MEDS ORDERED: CHLORTHALIDONE PO SCH (09:00)
[2021-01-13] MEDS ORDERED: ATENOLOL PO SCH (09:00)
[2021-01-13] MEDS ORDERED: SODIUM CHLORIDE 0.9% 250ML 250 ML ONE (22:07)
[2021-01-14] VITALS: BP 134/80
[2021-01-14 04:00] VITALS: BP 132/82
[2021-01-14] MEDS: ACETAMINOPHEN/CODEINE 300MG - 30MG TAB PO PRN (04:18)
[2021-01-14] MEDS: INSULIN LISPRO 100 UNIT/1 ML 3ML VIAL SQ SCH ×5 (07:30→16:30)
[2021-01-14 08:16] VITALS: BP 114/74
[2021-01-14] MEDS: ATENOLOL 50 MG TAB PO SCH (09:00)
[2021-01-14] MEDS: MEROPENEM 1 GM in SODIUM CHLORIDE 0.9% 100 ML IV SCH (09:00)
[2021-01-14] MEDS: CHLORTHALIDONE 25 MG TAB PO SCH (09:00)
[2021-01-14] MEDS: PANTOPRAZOLE SOD 40 MG TABEC PO SCH (09:00)
[2021-01-14] MEDS: INSULIN GLARGINE 100 UNITS/ML VIAL SQ SCH (09:00)
[2021-01-14] MEDS: LISINOPRIL 20 MG TAB PO SCH (09:00)
[2021-01-14] MEDS ORDERED: LOSARTAN POTAS100 MG PO (09:01)
[2021-01-14 09:02] VITALS: BP 114/74
[2021-01-14 11:47] VITALS: BP 135/89
[2021-01-14 16:22] VITALS: BP 88/70
[2021-01-14] MEDS ORDERED: CIPRO500 MG PO (16:23)
[2021-01-14] MEDS ORDERED: INSULIN LISPRO 100 UNIT/1 ML 3ML VIAL SQ SCH (16:30)
[2021-01-14] MEDS ORDERED: INSULIN GLARGINE 100 UNITS/ML VIAL SQ SCH (21:00)
== END 2021-01-14 17:02 | disposition home or self-care (01) | DRG 689 ==
LOC: ER 11:50 → ERHOLD 18:25 → MED/SURG2 01-12 06:14
DX: N10 Acute pyelonephritis (principal); E11.10 Type 2 diabetes mellitus with ketoacidosis without coma; Z68.41 Body mass index [BMI] 40.0-44.9, adult; I10 Essential (primary) hypertension; K21.9 Gastro-esophageal reflux disease without esophagitis; E78.5 Hyperlipidemia, unspecified; F17.210 Nicotine dependence, cigarettes, uncomplicated; E11.42 Type 2 diabetes mellitus with diabetic polyneuropathy; Z88.1 Allergy status to other antibiotic agents; Z88.5 Allergy status to narcotic agent; Z88.8 Allergy status to other drugs, medicaments and biological substances; J44.9 Chronic obstructive pulmonary disease, unspecified; E66.01 Morbid (severe) obesity due to excess calories; B96.20 Unspecified Escherichia coli [E. coli] as the cause of diseases classified elsewhere; Z20.822 Contact with and (suspected) exposure to COVID-19
CPT/HCPCS: 36415; 36600; 71045; 74177; 80048; 80053; 81001; 82550; 82553; 82948; 83036; 83518; 83735; 83880; 84439; 84443; 84484; 85025; 87070; 87086; 87186; 87400; 93005; 99284; J1815; J1817; J2185; J7030; J7050; Q9967; U0002

== ENCOUNTER 2022-02-27 12:55 | Emergency (ER) | payer BC ==
[~2022-02-27] VITALS: Ht 160 cm; Wt 105.2 kg
[~2022-02-27 12:55] MED LIST changes: +CIPRO500 MG PO; +LOSARTAN POTAS100 MG PO
== END 2022-02-27 13:36 | disposition home or self-care (01) ==
LOC: ER 13:09
DX: S91.301A Unspecified open wound, right foot, initial encounter (principal); E11.9 Type 2 diabetes mellitus without complications; I10 Essential (primary) hypertension; E78.5 Hyperlipidemia, unspecified; G47.30 Sleep apnea, unspecified; K21.9 Gastro-esophageal reflux disease without esophagitis
CPT/HCPCS: 99282